=== PATIENT | female | born 1975 | race Caucasian/White ===

== ENCOUNTER → 2016-07-03 | Outpatient (CLI) | payer BC | LOC: KOH-I 14:17 | DX: M54.2 Cervicalgia (principal); M47.812 Spondylosis without myelopathy or radiculopathy, cervical region | CPT/HCPCS: 72050 ==

== ENCOUNTER → 2016-07-05 | Outpatient (CLI) | payer BC | LOC: OPSV 09:44 | DX: M54.2 Cervicalgia (principal) | CPT/HCPCS: 96372; J1885; J2360; J3301 ==

== ENCOUNTER → 2016-07-10 | Outpatient (CLI) | payer BC | LOC: MRI 10:59 → EMI 07-13 08:15 | DX: M54.12 Radiculopathy, cervical region (principal); M25.511 Pain in right shoulder; R29.2 Abnormal reflex; M79.601 Pain in right arm; M50.323 Other cervical disc degeneration at C6-C7 level; M48.02 Spinal stenosis, cervical region | CPT/HCPCS: 72141 ==

== ENCOUNTER → 2020-12-06 | Outpatient (CLI) | payer OTHER | LOC: EXRD 09:34 | DX: M53.3 Sacrococcygeal disorders, not elsewhere classified (principal); M54.5 Low back pain; M47.818 Spondylosis without myelopathy or radiculopathy, sacral and sacrococcygeal region; M47.816 Spondylosis without myelopathy or radiculopathy, lumbar region | CPT/HCPCS: 72100; 72220 ==

== ENCOUNTER → 2021-12-17 | Outpatient (CLI) | payer BC ==
[2021-12-17 12:38] LABS: HEMOGLOBIN 13.8 gm/dl (12.3-15.3); RED BLOOD COUNT 4.78 M/UL (4.00-5.10); WHITE BLOOD COUNT 8.1 K/UL (4.5-11.0)
[2021-12-17 12:53] LABS: BUN/CREATININE RATIO 18 (0-10)
[2021-12-18 06:40] LABS: CREATININE, URINE 191.1 mg/dL (Not Estab.)
== END ==
LOC: LAB 11:36
PROVIDERS: Nurse Practitioner Family
DX: Z00.00 Encounter for general adult medical examination without abnormal findings (principal); R73.9 Hyperglycemia, unspecified; E78.5 Hyperlipidemia, unspecified; R53.83 Other fatigue; R60.0 Localized edema; I10 Essential (primary) hypertension; E55.9 Vitamin D deficiency, unspecified
CPT/HCPCS: 80053; 80061; 81001; 82043; 82570; 82607; 83036; 84439; 84443; 85025; 87086